=== PATIENT | male | born 1940 | race Caucasian/White ===

== ENCOUNTER 2016-06-27 14:11 | Emergency (ER) | payer MEDICARE ==
[~2016-06-27] VITALS: Ht 180.3 cm; Wt 121.4 kg
[~2016-06-27 14:11] MED LIST: ACET1TAB12 PO; AMLO10TA3 PO; ASPI81TA3 PO; ATOR80TA PO; FAMO20T PO; INS7030U SUBQ; LATA2.5D6 OP; LOSA100T29 PO; MAGN400O4 PO; METO75TA PO; MULT1CAP33 PO; NORT25CA PO; POLY17PO6 PO; TAMS0.4C98 PO
[2016-06-27 14:39] VITALS: BP 173/81; PULSE 51; RESP 18; O2SAT 98
--- NOTE | 2016-06-27 14:59 | ED.REPORT ---
HPI-General Illness Date of Service Jun 27, 2016 ED Provider: Carlos Cruz DO A 76 year old male with a history of CAD, COPD, diabetes, hypertension, stage IV prostate cancer, intracerebral hemorrhage, TIA and Afib presents to the ED complaining of abdominal pain that began 4 days ago. reports that patient has been experiencing SOB, headache, nausea, vomiting and cough. Patient has also had some difficulty walking due to general malaise. Patient denies any chest pain, numbness, weakness, tingling or any other stroke symptoms. Nursing Notes Stated Complaint: SHORTNESS OF BREATH, ABDOMINAL PAIN Chief Complaint: Male Abdominal Pain Nursing Notes Reviewed: Yes Allergies: Coded Allergies: No Known Allergies (Unverified , 01/12/16) Scheduled Amlodipine (Amlodipine) 10 Mg Tablet 10 MG PO DAILY Aspirin Chew (Aspirin Chew) 81 Mg Chew 81 MG PO DAILY Atorvastatin (Lipitor) 80 Mg Tablet 80 MG PO DAILY Famotidine (Pepcid) 20 Mg Tablet 20 MG PO BID Insul NPH Hu Rec/Ins Rg Hu Rec (Novolin 70/30 U100 Insulin Vial) 100 U/1 Ml U 25 U SUBQ BID Latanoprost (Latanoprost) 2.5 Ml Drops 1 GTT OP HS Metoprolol Tartrate (Metoprolol Tartrate) 75 Mg Tablet 75 MG PO BID Nortriptyline (Nortriptyline) 25 Mg Capsule 50 MG PO HS Tamsulosin (Flomax) 0.4 Mg Capsule 0.4 MG PO DAILY Scheduled PRN Acetaminophen/Codeine 300-30mg (Tylenol/Codeine #3) 1 Each Tablet 1 TABLET PO Q4H PRN PRN Pain Losartan Potassium (Losartan Potassium) 100 Mg Tablet 100 MG PO PRN hs Magnesium Hydroxide (Milk of Magnesia) 400 Mg/5 Ml Oral.susp 400 MG PO HS PRN PRN For Constipation Multivitamin (Multivitamins) 1 Each Capsule 1 EACH PO MORNING PRN PRN Supplement Polyethylene Glycol 3350 (Miralax) 17 Gm Powd.pack 17 GM PO HS PRN PRN For Constipation General Time Seen by MD: 14:56 Chief Complaint Abdominal pain Hx Obtained From: Patient, Spouse Arrived By: Walk-in Sudden in Onset?: No Onset Occurred: 4 days ago Symptom Duration: Since onset Location: : Abdomen Quality: Painful Radiation: : Does not radiate Severity: Current: Mild Severity: Maximum: Mild Associated with: Reports: Cough, Headache, Nausea, Shortness of breath, Vomiting, Denies: Dizziness, Numb extremities, Weakness Pertinent Negative: Pt denies other symptoms Recent Healthcare: No recent hospitalization, Recent doctor visit Past Medical History Past Medical History Cerebral artery occlusion w/ cerebral infarction Obstructive sleep apnea h/o intracerebral hemorrhage h/o colon polyps Chronic kidney disease Arthritis h/o pneumonia PVD h/o toxic metabolic encephalopathy h/o acute respiratory failure w/ hypoxia Diabetic mononeuropathy Reports: COPD, Cancer (Prostate Stage 4 ), Coronary artery disease, Diabetes mellitus, GERD, Hypertension, Stroke Reports: Atrial fibrillation, Morbid Obesity Past Surgical History Hernia repair Vascular surgery Polypectomy Reports: Tonsillectomy Smoking History Former Smoker Social History Drug Use: Denies drug use Other Social History: Good social support, , Local resident Ambulatory Status Independent Review of Systems Full Review of Systems Constitutional: Reports: Malaise, Denies: Chills, Fever Respiratory: Reports: Non-productive cough, Shortness of breath Cardiovascular: Denies: Chest pain GI: Reports: Abdominal pain, Nausea, Vomiting Neurologic: Reports: Headache, Problem walking, Denies: Change LOC, Numbness, Weakness Complete sys rev & neg: except as marked. Physical Exam Vital Signs Vital Signs Date Time Temp Pulse Resp B/P Pulse Ox O2 Delivery O2 Flow Rate FiO2 06/27/16 17:29 54 16 166/72 96 Room Air 06/27/16 14:39 35.9 51 18 173/81 98 Room Air Initial VS: Reviewed Neck: Supple, Non-tender, Full range of motion Extremities: Vascular intact, Neuro intact, No swelling, No tenderness Skin: Warm, Dry, No cyanosis Neurologic: Alert, Oriented, Nonfocal Psychiatric: Mood/affect normal, Behavior normal, Normal thought content General/Constitutional: Awake, Alert Head / Eyes: Atraumatic, Normocephalic, PERRL Respiratory / Chest: Atraumatic, Breath sounds NL, Breath sounds = bilat Cardiovascular: Heart rate NL, Regular rhythm, Heart sounds NL Abdomen: Atraumatic, Soft Tenderness/Guarding/Rebound: Positive: Guarding voluntary, Tender RLQ... Neurologic: Oriented X3, Speech NL, No motor deficits, No sensory deficits, CN II - XII intact, Reflexes equal bilat, Cerebellar NL, Memory NL Interpretation & Diagnostics Lab Results Interpretation Result Diagram: 06/27/16 1510 06/27/16 1510 Test 06/27/16 15:10 06/27/16 16:30 White Blood Count 7.1th/mm3 (3.8-10.1) Red Blood Count 4.66mil/mm3 (4.40-5.80) Hemoglobin 14.4g/dL (13.8-17.2) Hematocrit 40.1% (41.0-50.0) Mean Corpuscular Volume 86.1fL (81-100) Mean Corpuscular Hemoglobin 30.9pg (27.0-35.0) Mean Corpuscular Hemoglobin Concent 35.9% (32.0-37.0) Red Cell Distribution Width 12.9% (12.3-15.4) Platelet Count 206bil/L (150-400) Neutrophils (%) (Auto) 69.9% (40-74) Lymphocytes (%) (Auto) 19.7% (14-46) Monocytes (%) (Auto) 8.3% (4-12) Eosinophils (%) (Auto) 1.4% (0-5) Basophils (%) (Auto) 0.6% (0-3) Sodium Level 136mEq/L (134-144) Potassium Level 4.8mEq/L (3.5-5.2) Chloride Level 99mEq/L (97-108) Carbon Dioxide Level 25mmol/L (18-29) Blood Urea Nitrogen 13mg/dL (8-27) Creatinine 0.79mg/dL (0.76-1.27) Estimat Glomerular Filtration Rate 102mL/min (>59) Glucose Level 346mg/dL (60-99) Lactic Acid Level 1.9mmol/L (0.4-2.0) Calcium Level 9.1mg/dL (8.5-10.1) Magnesium Level 2.5mg/dL (1.6-2.6) Total Bilirubin 0.5mg/dL (0.0-1.2) Aspartate Amino Transf (AST/SGOT) 20U/L (0-50) Alanine Aminotransferase (ALT/SGPT) 18U/L (0-44) Alkaline Phosphatase 69U/L (25-160) Troponin T < 0.010ug/L (0.0-0.011) Total Protein 6.8g/dL (6.4-8.4) Albumin 3.6g/dL (3.4-5.0) Lipase 20U/L (13-60) Hold Urine Received (Received) ECG Interpretation ECG Interpretation: Normal Sinus Rhythm Rate 58 Time: 14:55 Interpreted by: ED physician Normal ECG Interpretation: No change from prior ECGs X-Ray Chest Interpretation Chest Xray Interpretation: IMPRESSION: No acute disease Dictated by: Mark Tatum M.D. on 06/27/2016 at 15:54 Interpretation / Wet Read by: Interpret - Radiologist CT Head Interpretation IMPRESSION: No acute intracranial process. Dictated by: Mark Tatum M.D. on 06/27/2016 at 16:43 Study: Head CT no contrast Interpretation / Wet Read by: Interpret - Radiologist CT Abd / Pelvis Interpretation IMPRESSION: No acute abnormality. Normal appendix. Bilateral renal cysts. Cardiomegaly. Calcified bilateral pleural plaques raise the possibility of asbestos related pleural disease. Dictated by: Mark Tatum M.D. on 06/27/2016 at 16:49 Study type: Abdominal CT IV contrast, Abdom CT oral contrast Interpretation / Wet Read by: Interpret - Radiologist Re-Eval/Medical Decision Med Decision/Clinical Course Overall no obvious source of infection or symptoms can be found. Unlikely to be pulmonary was not given normal heart rate, respiratory rate, and oxygen saturation. Discussed with patient diagnostic evaluation and he is agreeable for discharge with strict follow-up and return precautions. Time of Eval: 16:30 Patient Status: Condition improved Re-Evaluation/Progress Note: Patient is rechecked. He believes he may be experieincing an allergic reaction to the oral contrast. Negative for wheezes or stridor. Time of Eval: 17:12 Patient Status: Condition improved Re-Evaluation/Progress Note: Patient is rechecked. He is informed of his lab results, EKG results, CT results, X-ray results and diagnosis. All of the patient's questions are addressed. He understands and agrees with the treatment plan. Counseled Regarding: Diagnosis, Lab results, Need for follow-up, When/why to return to ED Discharge & Departure Primary Impression: Pain, abdominal, nonspecific Disposition: Home Discharge Condition All VS Reviewed: Yes Condition: Stable Patient Instructions: Acute Abdominal Pain (ED) Additional Instructions: Thank you for trusting us with your care this morning. Your emergency department evaluation today included interview, examination, lab work, EKG, brain CT, abdominal CT and chest X-ray. Your results are reassuring that there is no dangerous cause for concern at this time. Schedule a follow up appointment with your primary care provider in the next 2-3 days for a recheck. Please return to the emergency department for any new or worsening symptoms. Referrals: NOPCP (PCP) [facility]fs[facility]h [facility] Scribe Attestation Portions of this note were transcribed by Ivy Zuñiga. I, Dr. Cruz personally performed the history, physical exam and medical decision-making; I reviewed and confirmed the accuracy of the information in the transcribed note. Signed by: Ivy Zuñiga, 06/27/16, 1723. Carlos Cruz DO Jun 27, 2016 14:59 IVY ZUÑIGA Jun 27, 2016 15:00
[2016-06-27] MEDS ORDERED: Ondansetron 2 mg/mL 2 mL Inj IVPUSH PRN (15:10)
[2016-06-27] MEDS ORDERED: 0.9% Sodium Chloride 500 ML IV ONE (15:10)
[2016-06-27 15:27] LABS: BASOPHILS % (AUTO) 0.6 % (0-3); EOSINOPHILS % (AUTO) 1.4 % (0-5); MONOCYTES % (AUTO) 8.3 % (4-12); Mean Corpuscular Hemoglobin 30.9 pg (27.0-35.0); Mean Corpuscular Volume 86.1 fL (81-100); NEUTROPHILS % (AUTO) 69.9 % (40-74); Platelet Count 206 bil/L (150-400)
[2016-06-27 15:56] LABS: Magnesium 2.5 mg/dL (1.6-2.6)
--- NOTE | 2016-06-27 15:56 | DRSVH ---
PROCEDURE: X-RAY CHEST ONE VIEW, PORTABLE ([id number]) INDICATIONS: dyspnea TECHNIQUE: One view of the chest was acquired. COMPARISON: None. FINDINGS: Surgical changes and devices: Sternotomy wires Lungs and pleura: No pleural effusions or pneumothorax. Lungs are clear. Mediastinum: Mediastinal contours appear normal. Heart size is normal. Bones and chest wall: No suspicious bony lesions. Overlying soft tissues appear unremarkable. IMPRESSION: No acute disease Dictated by: Mark Tatmu M.D. on 06/27/2016 at 15:54 Approved by: Mark Tautm M.D. on 06/27/2016 at 15:54
--- NOTE | 2016-06-27 16:45 | DRSVH ---
PROCEDURE: CT BRAIN WITHOUT CONTRAST ([id number]) INDICATIONS: severe CULP, H/o ICH TECHNIQUE: Noncontrast 4.5 mm thick angled axial sections acquired from the foramen magnum to the vertex, with c oronal reformats. COMPARISON: None. FINDINGS: Image quality: Excellent. CSF spaces: Basal cisterns are patent. No extra-axial fluid collections. The ventricles are symmet reginaldo in size and shape. Brain: No intracranial bleeds or masses. There is cerebral volume loss for age, with resultant vent ricular and sulcal prominence. There are periventricular and deep white matter chronic small vessel ischemic changes. There is intracranial internal carotid artery atherosclerosis. Skull and face: Calvarium and visualized facial bones appear intact, without suspicious lesions. Sinuses: Visualized sinuses and mastoids are clear. IMPRESSION: No acute intracranial process. Dictated by: Mark Tatum M.D. on 06/27/2016 at 16:43 Approved by: Mark Tatum M.D. on 06/27/2016 at 16:43
--- NOTE | 2016-06-27 16:51 | DRSVH ---
PROCEDURE: CT ABDOMEN AND PELVIS WITH CONTRAST ([id number]) INDICATIONS: RLQ pain TECHNIQUE: After the administration of intravenous contrast, 5 mm thick sections acquired from the diaphragm to the symphysis. 5 mm coronal and sagittal reformats were acquired. For radiation dose reduction, the following was used: automated exposure control, adjustment of mA and/or kV according to patient siz e. COMPARISON: None. FINDINGS: Image quality: Excellent. ABDOMEN: Lung bases: Left basilar atelectasis. Bilateral lower lobe calcified pleural plaques. Heart is enlarg ed. Solid organs: Liver and spleen are normal in size and enhancement. Gallbladder surgically absent. Biliary system is non dilated. Pancreas enhances normally. No adrenal nodules. Kidneys demonstrate normal size and enhancement, without hydronephrosis. Bilateral renal cysts, measuring up to 8.0 cm. Some of these are too small to characterize definitively and technically indeterminate. Peritoneum and bowel: Bowel loops demonstrate normal wall thickness and caliber. No free fluid or a ir. Normal appendix Nodes and vessels: No retroperitoneal or mesenteric adenopathy by size criteria. Mild ectasia of the infrarenal abdominal aorta measuring 3.3 cm Miscellaneous: No ventral hernias. PELVIS: Genitourinary: Bladder wall thickness is normal. Miscellaneous: Small bilateral fat-containing inguinal hernias. No adenopathy. Bones: No suspicious bony lesions. No vertebral body compression fractures. IMPRESSION: No acute abnormality. Normal appendix. Bilateral renal cysts. Cardiomegaly. Calcified bilateral pleural plaques raise the possibility of asbestos related pleural disease. Dictated by: Mark Tatum M.D. on 06/27/2016 at 16:49 Approved by: Mark Tatum M.D. on 06/27/2016 at 16:49
[2016-06-27 17:29] VITALS: BP 166/72; PULSE 54; RESP 16; O2SAT 96
[2016-08-20] MEDS ORDERED: LAMO25TA2 PO (17:16)
[2016-08-20] MEDS ORDERED: MEMA5TAB PO (17:16)
[2016-08-20] MEDS ORDERED: ONDA4TAB6 PO (17:16)
== END 2016-06-27 17:30 | disposition home or self-care (01) ==
LOC: SED 14:11
DX: R10.9 Unspecified abdominal pain (principal); I25.10 Atherosclerotic heart disease of native coronary artery without angina pectoris; J44.9 Chronic obstructive pulmonary disease, unspecified; E11.9 Type 2 diabetes mellitus without complications; I10 Essential (primary) hypertension; I48.91 Unspecified atrial fibrillation; K21.9 Gastro-esophageal reflux disease without esophagitis; Z87.891 Personal history of nicotine dependence; Z86.73 Personal history of transient ischemic attack (TIA), and cerebral infarction without residual deficits; Z85.46 Personal history of malignant neoplasm of prostate; Z87.01 Personal history of pneumonia (recurrent); Z79.82 Long term (current) use of aspirin; Z79.4 Long term (current) use of insulin
CPT/HCPCS: 36415; 70450; 71010; 74177; 80053; 83605; 83690; 83735; 84484; 85025; 93005; 96374; 96375; 99285; J2270; J2405; J7040; Q9967

== ENCOUNTER 2016-06-30 02:55 | Emergency (ER) | payer MEDICARE ==
[~2016-06-30] VITALS: Ht 182.9 cm; Wt 121.3 kg
[2016-06-30 03:04] VITALS: BP 163/55; PULSE 45; RESP 18; O2SAT 100
--- NOTE | 2016-06-30 03:05 | ED.REPORT ---
HPI-Stroke / CVA Jun 30, 2016 ED Provider: Ulices Eastman MD Pt is 76 y/o male with history of stroke with underlying dementia who reports to the ED via EMS for stroke like symptoms. Per the , Pt awakened at 2200 last night with right sided weakness which was resolved upon his arrival in the ER. Pt is a poor historian and unable to remember much of anything. Nursing Notes Stated Complaint: CODE STROKE Chief Complaint: Stroke Symptoms Nursing Notes Reviewed: Yes Allergies: Coded Allergies: No Known Allergies (Unverified , 01/12/16) Scheduled Amlodipine (Amlodipine) 10 Mg Tablet 10 MG PO DAILY (Reported) Aspirin Chew (Aspirin Chew) 81 Mg Chew 81 MG PO DAILY (Reported) Atorvastatin (Lipitor) 80 Mg Tablet 80 MG PO DAILY (Reported) Famotidine (Pepcid) 20 Mg Tablet 20 MG PO BID (Reported) Insul NPH Hu Rec/Ins Rg Hu Rec (Novolin 70/30 U100 Insulin Vial) 100 U/1 Ml U 25 U SUBQ BID Latanoprost (Latanoprost) 2.5 Ml Drops 1 GTT OP HS Metoprolol Tartrate (Metoprolol Tartrate) 75 Mg Tablet 75 MG PO BID (Reported) Nortriptyline (Nortriptyline) 25 Mg Capsule 50 MG PO HS (Reported) Tamsulosin (Flomax) 0.4 Mg Capsule 0.4 MG PO DAILY (Reported) Scheduled PRN Acetaminophen/Codeine 300-30mg (Tylenol/Codeine #3) 1 Each Tablet 1 TABLET PO Q4H PRN PRN Pain (Reported) Losartan Potassium (Losartan Potassium) 100 Mg Tablet 100 MG PO PRN hs (Reported ) Magnesium Hydroxide (Milk of Magnesia) 400 Mg/5 Ml Oral.susp 400 MG PO HS PRN PRN For Constipation (Reported) Multivitamin (Multivitamins) 1 Each Capsule 1 EACH PO MORNING PRN PRN Supplement (Reported) Polyethylene Glycol 3350 (Miralax) 17 Gm Powd.pack 17 GM PO HS PRN PRN For Constipation (Reported) General Time Seen by Provider: 03:22 Chief Complaint Weakness Right-sided Hx Obtained From: Spouse, EMS Arrived By: Ambulance Time last known well 2200 last night. Sudden in Onset?: Yes Symptom Duration: 5 - 8 hours Progression Since Onset: Resolved Similar Sx Previous: Yes Risk Factors NIH Stroke Scale Level of Consciousness: Alert and responsive (0) Ask Month & Age: 0 questions right (2) Open/Close Eyes/Hand [employer] Site Monitor: Performs both tasks (0) Horizontal EO Movements: None (0) Visual Orr: No visual loss (0) Facial Palsy: Normal symmetry (0) Right Arm Motor Drift (10s): No drift 10 sec (0) Left Arm Motor Drift (10s): No drift 10 sec (0) Right Leg Motor Drift (5s): No drift 5 sec (0) Left Leg Motor Drift (5s): No drift 5 sec (0) Limb Ataxia FNF/Heel-Damon: No ataxia (0) Sensation (Arms/Legs/Face): No sensory loss (0) Language Aphasia: No aphasia, normal (0) Dysarthria: No dysarthria, normal (0) Extinction/Inattention: No exctinct/inattent (0) NIHSS Score: 2 Time NIHSS Performed: 03:10 Date NIHSS Performed: Jun 30, 2016 )( CVA Risk Stratification Age >60 Diabetes mellitus Hypertension Other (coronary artery disease) Prior CVA/TIA Risk factors reviewed Past Medical History Past Medical History Cerebral artery occlusion w/ cerebral infarction Obstructive sleep apnea h/o intracerebral hemorrhage h/o colon polyps Chronic kidney disease Arthritis h/o pneumonia PVD h/o toxic metabolic encephalopathy h/o acute respiratory failure w/ hypoxia Diabetic mononeuropathy Reports: COPD, Cancer, Coronary artery disease, Diabetes mellitus, GERD, Hypertension, Stroke Reports: Atrial fibrillation, Morbid Obesity Past Surgical History Hernia repair Vascular surgery Polypectomy Reports: Tonsillectomy Smoking History Former Smoker Social History Drug Use: Denies drug use Other Social History: Good social support, , Local resident Ambulatory Status Independent Review of Systems ROS limited due to patient's underlying dementia. Neurologic: Reports: Confusion, Focal weakness (Right side) Complete sys rev & neg: except as marked. Physical Exam Initial Vital Signs Vital Signs (First) Date Time Temp Pulse Resp B/P Pulse Ox O2 Delivery O2 Flow Rate FiO2 06/30/16 03:04 36.6 45 18 163/55 100 Room Air Initial VS: Reviewed, Vital signs abnormal Abdomen / GI: Soft, Non-tender, No guarding, No rebound, No distention Extremities: Vascular intact, Neuro intact, No swelling, No tenderness Skin: Warm, Dry, No cyanosis General/Constitutional: Awake, Not toxic appearing Alertness: Positive: Confused, Disoriented Behavior: Positive: Anxious Head / Eyes: Atraumatic, Normocephalic Neck: Supple, Full range of motion, No swelling, Non-tender, No carotid bruit Respiratory / Chest: Breath sounds NL, Breath sounds = bilat, No respiratory distress, No rales, No rhonchi, No wheezing Cardiovascular: Heart rate NL, Regular rhythm, Heart sounds NL, No murmurs, Peripheral circulation NL Neurologic: Speech NL Mental Status: Positive: Confused, Disoriented to time See NIH Stroke Scale in risk section of this note. Interpretation & Diagnostics Lab Results Interpretation Result Diagram: 06/30/16 0300 06/30/16 0300 Test 06/30/16 03:00 06/30/16 04:00 White Blood Count 6.3th/mm3 (3.8-10.1) Red Blood Count 4.48mil/mm3 (4.40-5.80) Hemoglobin 13.8g/dL (13.8-17.2) Hematocrit 38.7% (41.0-50.0) Mean Corpuscular Volume 86.4fL (81-100) Mean Corpuscular Hemoglobin 30.8pg (27.0-35.0) Mean Corpuscular Hemoglobin Concent 35.7% (32.0-37.0) Red Cell Distribution Width 12.8% (12.3-15.4) Platelet Count 220bil/L (150-400) Neutrophils (%) (Auto) 59.1% (40-74) Lymphocytes (%) (Auto) 29.4% (14-46) Monocytes (%) (Auto) 9.3% (4-12) Eosinophils (%) (Auto) 1.6% (0-5) Basophils (%) (Auto) 0.3% (0-3) Prothrombin Time 10.0sec (8.1-12.5) Prothromb Time International Ratio 0.94ratio Activated Partial Thromboplast Time 21.0sec (22.8-33.0) Sodium Level 136mEq/L (134-144) Potassium Level 3.9mEq/L (3.5-5.2) Chloride Level 96mEq/L (97-108) Carbon Dioxide Level 26mmol/L (18-29) Blood Urea Nitrogen 11mg/dL (8-27) Creatinine 0.85mg/dL (0.76-1.27) Estimat Glomerular Filtration Rate 93mL/min (>59) Glucose Level 272mg/dL (60-99) Calcium Level 9.2mg/dL (8.5-10.1) Total Bilirubin 0.5mg/dL (0.0-1.2) Aspartate Amino Transf (AST/SGOT) 17U/L (0-50) Alanine Aminotransferase (ALT/SGPT) 18U/L (0-44) Alkaline Phosphatase 65U/L (25-160) Troponin T 0.010ug/L (0.0-0.011) Total Protein 6.5g/dL (6.4-8.4) Albumin 3.4g/dL (3.4-5.0) Urine Color Yellow (YELLOW) Urine Appearance Clear (CLEAR,HAZY) Urine pH 8.5 (5.0-8.0) Urine Specific [place] 1.015 (1.003-1.035) Urine Protein 100mg/dL (NEG,TRACE) Urine Glucose (UA) 250mg/dL (NEGATIVE) Urine Ketones Negativemg/dL (NEGATIVE) Urine Occult Blood Trace (NEGATIVE) Urine Nitrite Negative (NEGATIVE) Urine Bilirubin Negative (NEGATIVE) Urine Urobilinogen Normalmg/dL (NORMAL) Urine Leukocyte Esterase Negative (NEGATIVE) Urine RBC 0-2/hpf (0-2) Urine WBC 0-5/hpf (0-5) Urine Epithelial Cells Few/hpf (NONE-MOD) Urine Crystals None seen (NONE SEEN) Urine Bacteria Few/hpf (NONE-FEW) Urine Hyaline Casts None/lpf (NONE) Urine Granular Casts None seen (NONE SEEN) Urine Waxy Casts None seen (NONE SEEN) Urine Red Blood Cell Casts None seen (NONE SEEN) Urine White Blood Cell Casts None seen (NONE SEEN) Urine Mucus None seen (None Seen) Urine Trichomonas None seen (NONE SEEN) Urine Yeast None (NONE SEEN) Urinalysis Comment None Urine Culture Reflexed Not indicated Lab values outside NL range: no clinical significance. ECG Interpretation ECG Interpretation: Sinus bradycardia, rate 49. Time: 03:15 Interpreted by: ED physician ECG Interpretation: Slow sinus arrhythmia, Rate 49 Nonspecific intraventricular conduction delay Nonspecific T abnormalities, anterior leads Time: 04:49 Interpreted by: ED physician CT Head Interpretation Chronic infarct versus contusion involving the lateral aspect of the right temporal lobe. Moderate involutional changes. Moderate patchy low density bilaterally in the deep white matter likely due to chronic ischemic small vessle disease. No acute intracranial abnormality. Prominence of the ventricular system may be secondary to atrophy versus normal pressure hydrocephalus. Study: Head CT no contrast Interpretation / Wet Read by: Interpret - Radiologist Re-Eval/Medical Decision Med Decision/Clinical Course 76-year-old male who has been on metoprolol 75 twice a day. He was found to be bradycardic so his dose was decreased to 50 mg twice a day. He has persistent bradycardia and had an episode of weakness and confusion. Family was concerned this may be another stroke. CT scan is negative. He is not a TPA candidate because is outside the window and his symptoms have resolved. He has had recent TIA workup. He will skip a dose of metoprolol then decrease his dose to 25 twice a day with close monitoring of hypotension or bradycardia. He will follow-up with his primary doctor in the next 2-3 days. Source of Hx: Old records Counseled Regarding: Diagnosis, Lab results, Need for follow-up, When/why to return to ED Patient Discharge & Departure Impression: Primary Impression: Transient confusion Additional Impression: Bradycardia, drug induced Disposition: Home Discharge Condition All VS Reviewed: Yes Condition: Stable Additional Instructions: John's heart rate is still too low. No metoprolol this morning, then decrease his metoprolol to 25 mg twice daily. It does not appear that he has had a new stroke. I think his confusion was related to the low heart rate. Keep your appointment this morning with your primary doctor to discuss further medication changes. Referrals: NOPCP (PCP) Scribe Attestation Portions of this note were transcribed by Luigi Cao and Claudy Hoff. I, Dr. Eastman personally performed the history, physical exam and medical decision-making; I reviewed and confirmed the accuracy of the information in the transcribed note. Signed by: Darnell Colunga, 06/30/16 and 06:41 Ulices Eastman MD Jun 30, 2016 03:05 Luigi Cao Jun 30, 2016 03:33 CLAUDY HOFF Jun 30, 2016 04:25
[2016-06-30 03:09] LABS: BASOPHILS % (AUTO) 0.3 % (0-3); EOSINOPHILS % (AUTO) 1.6 % (0-5); MONOCYTES % (AUTO) 9.3 % (4-12); Mean Corpuscular Hemoglobin 30.8 pg (27.0-35.0); Mean Corpuscular Volume 86.4 fL (81-100); NEUTROPHILS % (AUTO) 59.1 % (40-74); Platelet Count 220 bil/L (150-400)
[2016-06-30 03:16] VITALS: BP 163/55; PULSE 45; RESP 12; O2SAT 100
[2016-06-30 03:26] LABS: INR 0.94 ratio
[2016-06-30 03:31] LABS: TROPONIN T 0.01 ug/L (0.0-0.011)
[2016-06-30 03:38] VITALS: BP 167/57; PULSE 48; RESP 22; O2SAT 99
[2016-06-30 04:33] VITALS: BP 176/55; PULSE 43; RESP 13; O2SAT 96
[2016-06-30 05:52] LABS: APPEARANCE,URINE CLEAR (CLEAR,HAZY); COLOR,URINE YELLOW (YELLOW); OCCULT BLOOD,URINE TRACE (NEGATIVE); PH,URINE 8.5 (5.0-8.0); UROBILINOGEN,URINE NORMAL (NORMAL)
[2016-06-30 06:29] VITALS: BP 155/64; PULSE 47; RESP 12; O2SAT 96
[2016-06-30 07:24] VITALS: BP 155/64; PULSE 47; RESP 12; O2SAT 96
--- NOTE | 2016-06-30 12:11 | DRSVH ---
PROCEDURE: CT BRAIN (TPA) ([id number]) INDICATIONS: Stroke TECHNIQUE: Noncontrast 4.5 mm thick angled axial sections acquired from the foramen magnum to the vertex, with c oronal reformats. COMPARISON: [facility], CT, CT BRAIN WO CON, 06/27/2016, 16:22. [facility], CT, BRAIN (TPA), 01/12/2016, 12:16. FINDINGS: Image quality: Excellent. CSF spaces: Basal cisterns are patent. No extra-axial fluid collections. The ventricles are symmet reginaldo in size and shape. There is a mild ventricular prominence, out of proportion to gyral and sulcal atrophy. Brain: No intracranial bleeds or masses. There is cerebral volume loss for age, with resultant vent ricular and sulcal prominence. There are periventricular and deep white matter chronic small vessel ischemic changes. There is intracranial internal carotid artery atherosclerosis. There is a focus o f right temporal low attenuation, new compared to prior exam. Skull and face: Calvarium and visualized facial bones appear intact, without suspicious lesions. Sinuses: Visualized sinuses and mastoids are clear. IMPRESSION: 1. No acute intracranial process. 2. Moderate atrophy and chronic microvascular ischemic changes. This study fulfills neurological imaging criteria for inclusion or exclusion of acute stroke therapie s based on available published neurological guidelines. Dictated by: Poppy Gómez M.D. on 06/30/2016 at 12:09 Approved by: Poppy Gómez M.D. on 06/30/2016 at 12:09
[2016-08-20] MEDS ORDERED: MEMA5TAB PO (17:16)
[2016-08-20] MEDS ORDERED: LAMO25TA2 PO (17:16)
[2016-08-20] MEDS ORDERED: ONDA4TAB6 PO (17:16)
== END 2016-06-30 07:24 | disposition home or self-care (01) ==
LOC: SED 02:55
DX: R41.0 Disorientation, unspecified (principal); R00.1 Bradycardia, unspecified; T44.7X5A Adverse effect of beta-adrenoreceptor antagonists, initial encounter; Y93.89 Activity, other specified; Y92.89 Other specified places as the place of occurrence of the external cause; Y99.8 Other external cause status; I25.10 Atherosclerotic heart disease of native coronary artery without angina pectoris; I48.91 Unspecified atrial fibrillation; J44.9 Chronic obstructive pulmonary disease, unspecified; I12.9 Hypertensive chronic kidney disease with stage 1 through stage 4 chronic kidney disease, or unspecified chronic kidney disease; E11.22 Type 2 diabetes mellitus with diabetic chronic kidney disease; N18.9 Chronic kidney disease, unspecified; E11.41 Type 2 diabetes mellitus with diabetic mononeuropathy; K21.9 Gastro-esophageal reflux disease without esophagitis; F03.90 Unspecified dementia, unspecified severity, without behavioral disturbance, psychotic disturbance, mood disturbance, and anxiety; Z86.73 Personal history of transient ischemic attack (TIA), and cerebral infarction without residual deficits; Z79.82 Long term (current) use of aspirin; Z79.4 Long term (current) use of insulin; Z87.891 Personal history of nicotine dependence
CPT/HCPCS: 36415; 70450; 80053; 81000; 82948; 84484; 85025; 85610; 85730; 93005; 99285; G0463

== ENCOUNTER 2016-08-13 10:45 | Emergency (ER) | payer MEDICARE ==
[~2016-08-13] VITALS: Ht 180.3 cm; Wt 100.0 kg
[2016-08-13 10:49] VITALS: PULSE 40; RESP 14; O2SAT 100
--- NOTE | 2016-08-13 10:57 | ED.REPORT ---
HPI-General Illness Date of Service Aug 13, 2016 ED Provider: Kyleigh Wilks MD Patient is a 76 year old male with a history of CAD, COPD, DM, HTN, stage IV prostate cancer, intracerebral hemorrhage, TIA and A-fib presents to the ED due to severe headache and bradycardia onset this morning. Patient's reports that he began complaining of a headache at 1600 yesterday which has increased in severity since, now rated at 10/10. Pt was in the ED last week due to a GLF where he hit his head. CT scans did not show any acute findings at the time. He associates SOB, abdominal pain, and confirms that his symptoms are worse then yesterday. He denies fever, cough, chills and chest pain. Pt has chronic low heart rate and high blood pressure and was last seen in the ED a month ago for low blood pressure. Pt has cataracts and is almost completely blind. His suggests that his headaches are associated with straining his eyes. He was seen [address] Nickerson's office. Nursing Notes Stated Complaint: MASSIVE HEADACHE Chief Complaint: Headache Nursing Notes Reviewed: Yes Allergies: Coded Allergies: No Known Allergies (Unverified , 08/13/16) Scheduled Amlodipine (Amlodipine) 10 Mg Tablet 10 MG PO DAILY Aspirin Chew (Aspirin Chew) 81 Mg Chew 81 MG PO DAILY Atorvastatin (Lipitor) 80 Mg Tablet 80 MG PO DAILY Famotidine (Pepcid) 20 Mg Tablet 20 MG PO BID Insul NPH Hu Rec/Ins Rg Hu Rec (Novolin 70/30 U100 Insulin Vial) 100 U/1 Ml U 25 U SUBQ BID Latanoprost (Latanoprost) 2.5 Ml Drops 1 GTT OP HS Metoprolol Tartrate (Metoprolol Tartrate) 75 Mg Tablet 75 MG PO BID Nortriptyline (Nortriptyline) 25 Mg Capsule 50 MG PO HS Tamsulosin (Flomax) 0.4 Mg Capsule 0.4 MG PO DAILY Scheduled PRN Acetaminophen/Codeine 300-30mg (Tylenol/Codeine #3) 1 Each Tablet 1 TABLET PO Q4H PRN PRN Pain Losartan Potassium (Losartan Potassium) 100 Mg Tablet 100 MG PO PRN hs Magnesium Hydroxide (Milk of Magnesia) 400 Mg/5 Ml Oral.susp 400 MG PO HS PRN PRN For Constipation Multivitamin (Multivitamins) 1 Each Capsule 1 EACH PO MORNING PRN PRN Supplement Polyethylene Glycol 3350 (Miralax) 17 Gm Powd.pack 17 GM PO HS PRN PRN For Constipation General Time Seen by MD: 10:56 Chief Complaint Other (bradycardia) Hx Obtained From: Patient, Spouse Arrived By: Ambulance Sudden in Onset?: Yes Onset Occurred: Just prior to arrival Symptom Duration: Since onset Severity: Current: No pain currently Recent Healthcare: Recent doctor visit Similar Sx Previous: No Past Medical History Past Medical History Cerebral artery occlusion w/ cerebral infarction Obstructive sleep apnea h/o intracerebral hemorrhage h/o colon polyps Chronic kidney disease Arthritis h/o pneumonia PVD h/o toxic metabolic encephalopathy h/o acute respiratory failure w/ hypoxia Diabetic mononeuropathy Stage 4 metastatic prostate cancer Reports: COPD, Cancer, Coronary artery disease, Diabetes mellitus, GERD, Hypertension, Stroke Reports: Atrial fibrillation, Morbid Obesity Past Surgical History Hernia repair Vascular surgery Polypectomy Reports: Tonsillectomy Smoking History Former Smoker Social History Drug Use: Denies drug use Other Social History: Good social support, , Local resident Ambulatory Status Independent Review of Systems bradycardia Full Review of Systems Constitutional: Denies: Chills, Fever Respiratory: Reports: Shortness of breath, Denies: Non-productive cough Cardiovascular: Denies: Chest pain GI: Reports: Abdominal pain Neurologic: Reports: Headache Complete sys rev & neg: except as marked. Physical Exam Vital Signs Vital Signs Date Time Temp Pulse Resp B/P Pulse Ox O2 Delivery O2 Flow Rate FiO2 08/13/16 11:50 36.3 39 15 172/70 100 Room Air 2 Nasal Cannula 08/13/16 11:06 37 10 172/64 100 Room Air 08/13/16 10:49 36.3 40 14 100 Room Air Initial VS: Reviewed ENT: Mucous membranes moist, Conjunctiva normal, No scleral icterus Back: No CVA tenderness Extremities: Vascular intact, Neuro intact, No swelling, No tenderness Skin: Warm, Dry, No cyanosis Psychiatric: Mood/affect normal, Behavior normal, Normal thought content General/Constitutional: Awake Distress / Hydration: Positive: Distress moderate Appearance / Presentation: Positive: Obese globablly weak able to stand and transfer to bed Head / Eyes: Atraumatic, Normocephalic severe headache, worse then baseline Respiratory / Chest: Atraumatic, Breath sounds NL, Breath sounds = bilat, No respiratory distress, No rales, No rhonchi, No wheezing, No retractions Cardiovascular: No gallop, No murmurs, No rubs Heart Rate / Rhythm: Positive: Bradycardia Lower Ext Edema: Positive: Bilateral 3+ Abdomen: No guarding, No rebound Tenderness/Guarding/Rebound: Positive: Tender diffuse (nonspecific lower abdominal pain) LLQ pain Interpretation & Diagnostics Lab Results Interpretation Result Diagram: 08/13/16 1100 08/13/16 1100 Test 08/13/16 11:00 08/13/16 11:41 White Blood Count 7.7th/mm3 (3.8-10.1) Red Blood Count 4.41mil/mm3 (4.40-5.80) Hemoglobin 13.8g/dL (13.8-17.2) Hematocrit 38.8% (41.0-50.0) Mean Corpuscular Volume 88.0fL (81-100) Mean Corpuscular Hemoglobin 31.3pg (27.0-35.0) Mean Corpuscular Hemoglobin Concent 35.6% (32.0-37.0) Red Cell Distribution Width 13.1% (12.3-15.4) Platelet Count 202bil/L (150-400) Neutrophils (%) (Auto) 69.5% (40-74) Lymphocytes (%) (Auto) 20.4% (14-46) Monocytes (%) (Auto) 6.1% (4-12) Eosinophils (%) (Auto) 1.9% (0-5) Basophils (%) (Auto) 1.8% (0-3) Sodium Level 136mEq/L (134-144) Potassium Level 4.5mEq/L (3.5-5.2) Chloride Level 100mEq/L (97-108) Carbon Dioxide Level 24mmol/L (18-29) Blood Urea Nitrogen 12mg/dL (8-27) Creatinine 0.74mg/dL (0.76-1.27) Estimat Glomerular Filtration Rate 110mL/min (>59) Glucose Level 298mg/dL (60-99) Calcium Level 9.1mg/dL (8.5-10.1) Total Bilirubin 0.6mg/dL (0.0-1.2) Aspartate Amino Transf (AST/SGOT) 16U/L (0-50) Alanine Aminotransferase (ALT/SGPT) 15U/L (0-44) Alkaline Phosphatase 63U/L (25-160) Troponin T < 0.010ug/L (0.0-0.011) Pro-B-Type Natriuretic Peptide 321.8pg/mL (0-486) Total Protein 6.4g/dL (6.4-8.4) Albumin 3.6g/dL (3.4-5.0) Procalcitonin 0.06ng/mL (0.00-0.08) Hold Green Top Tube Received (Received) Urine Color Yellow (YELLOW) Urine Appearance Hazy (CLEAR,HAZY) Urine pH 7.0 (5.0-8.0) Urine Specific [place] 1.025 (1.003-1.035) Urine Protein 100mg/dL (NEG,TRACE) Urine Glucose (UA) 500mg/dL (NEGATIVE) Urine Ketones Negativemg/dL (NEGATIVE) Urine Occult Blood Trace (NEGATIVE) Urine Nitrite Negative (NEGATIVE) Urine Bilirubin Negative (NEGATIVE) Urine Urobilinogen Normalmg/dL (NORMAL) Urine Leukocyte Esterase Negative (NEGATIVE) Urine RBC 11-50/hpf (0-2) Urine WBC 0-5/hpf (0-5) Urine Epithelial Cells Occasional/hpf (NONE-MOD) Urine Crystals None seen (NONE SEEN) Urine Bacteria Moderate/hpf (NONE-FEW) Urine Hyaline Casts None/lpf (NONE) Urine Granular Casts Occasional (NONE SEEN) Urine Waxy Casts None seen (NONE SEEN) Urine Red Blood Cell Casts None seen (NONE SEEN) Urine White Blood Cell Casts None seen (NONE SEEN) Urine Mucus None seen (None Seen) Urine Trichomonas None seen (NONE SEEN) Urine Yeast None (NONE SEEN) Urinalysis Comment None Urine Culture Reflexed Indicated ECG Interpretation Time: 11:02 Interpreted by: ED physician Rhythm / Conduction: Bradycardia (41 w/ PVC ) X-Ray Chest Interpretation Chest Xray Interpretation: IMPRESSION: Mild cardiomegaly. Dictated by: Poppy Gómez M.D. on 08/13/2016 at 11:17 Approved by: Poppy Gómez M.D. on 08/13/2016 at 11:18 View: Portable Interpretation / Wet Read by: Interpret - Radiologist CT Head Interpretation IMPRESSION: 1. No acute intracranial findings. 2. Extensive findings likely associated with chronic microvascular ischemic changes. Dictated by: Brisa Baugh M.D. on 08/13/2016 at 12:16 Approved by: Brisa Baugh M.D. on 08/13/2016 at 12:19 Study: Head CT no contrast Interpretation / Wet Read by: Interpret - Radiologist Re-Eval/Medical Decision Time of Eval: 11:15 Patient Status: Condition unchanged Re-Evaluation/Progress Note: Holter monitor is not avilable. Time of Eval: 14:02 Patient Status: Condition improved Re-Evaluation/Progress Note: Pt heart rate is much improved. electron gun inspector is in the 50's with episodes of bradycardia. Discussed plan of treatment with patient and spouse. Imaging and blood work do not show any signs of bleed, heart attack or evidence of heart failure. Plan to discuss case with Dr. Jernigan. Consultation #1: Referral / Consult Name: Jeffrey Martinez MD Consulted With: Cardiology Call Returned at: 14:15 Residential Care Facility Manager: Agrees with michael, Agrees with plan Note: Dr. Martinez agrees that a pacemaker may be appropriate. Consultation #2: Call Returned at: 15:07 Residential Care Facility Manager: Agrees with michael, Agrees with plan Note: Dr. Anthony agrees to stop Metropolol completely. He will see pt in clinic tomorrow and likely schedule him for a pacemaker replacement on Wednesday. Counseled Regarding: Diagnosis, Lab results, Need for follow-up, When/why to return to ED Discharge & Departure Primary Impression: Headache Headache type: unspecified Headache chronicity pattern: unspecified pattern Intractability: not intractable Qualified Code: R51 - Headache Additional Impressions: Bradycardia Tachy-kari syndrome Ruled Out: Stroke, Acute coronary syndrome, Third degree heart block Disposition: Home Discharge Condition All VS Reviewed: Yes Condition: Stable Additional Instructions: After reviewing your lab work and imaging, there are no signs of a head bleed, heart attack or evidence of heart failure. Your symptoms are most likely due to low heart rate. I have talked with the chemical lab supervisor Dr. Atwood and discussed your case. He agrees that you should stop Metoprolol completely. I would also like you to hold the amlodipine tomorrow and discuss taking it with Dr Atwood. You have an apt at 430 in the Clinic tomorrow. Please arrive by 4:15 (same clinic as Dr Duran) He may schedule you for pacemaker placement on Wednesday. Please return to the Emergency Department if you experience any new or worsening symptoms. I hope you get these heart issues sorted out soon and get your cataracts taken care of too. I wish you the best Referrals: NOPCP (PCP) Scribe Attestation Portion of this note were transcribed by Anival Jason. I, Dr. Wilks, personally performed the history, physical exam, and medical decision-making: I reviewed and confirmed the accuracy for the information in the transcribed note. Signed by: feroz Meza, 08/13/16 1400 copies to: Caroline Duran MD; Barrie Atwood MD, Shawna L MD Aug 13, 2016 10:57 ANIVAL JASON Aug 13, 2016 11:27
[2016-08-13 11:06] VITALS: BP 172/64; PULSE 37; RESP 10; O2SAT 100
--- NOTE | 2016-08-13 11:19 | DRSVH ---
PROCEDURE: X-RAY CHEST ONE VIEW, PORTABLE ([id number]) INDICATIONS: HEADACHE, RECENT FALL TECHNIQUE: One view of the chest was acquired. COMPARISON: [facility], CR, XR CHEST 1VW (PORTABLE), 06/27/2016, 15:08. FINDINGS: Surgical changes and devices: Sternal wires. Lungs and pleura: No pleural effusions or pneumothorax. Lungs are clear. Mediastinum: Mediastinal contours appear normal. Heart size is enlarged. Bones and chest wall: No suspicious bony lesions. Overlying soft tissues appear unremarkable. IMPRESSION: Mild cardiomegaly. Dictated by: Poppy Gómez M.D. on 08/13/2016 at 11:17 Approved by: Poppy Gómez M.D. on 08/13/2016 at 11:18
[2016-08-13 11:24] LABS: BASOPHILS % (AUTO) 1.8 % (0-3); EOSINOPHILS % (AUTO) 1.9 % (0-5); MONOCYTES % (AUTO) 6.1 % (4-12); Mean Corpuscular Hemoglobin 31.3 pg (27.0-35.0); NEUTROPHILS % (AUTO) 69.5 % (40-74); Platelet Count 202 bil/L (150-400)
[2016-08-13 11:50] VITALS: BP 172/70; PULSE 39; RESP 15; O2SAT 100
[2016-08-13 11:54] LABS: APPEARANCE,URINE HAZY (CLEAR,HAZY); COLOR,URINE YELLOW (YELLOW); OCCULT BLOOD,URINE TRACE (NEGATIVE); UROBILINOGEN,URINE NORMAL (NORMAL)
[2016-08-13 11:56] LABS: TROPONIN T < 0.010 ug/L (0.0-0.011)
--- NOTE | 2016-08-13 12:21 | DRSVH ---
PROCEDURE: CT BRAIN WITHOUT CONTRAST ([id number]) INDICATIONS: 03/30 headache TECHNIQUE: Noncontrast 4.5 mm thick angled axial sections acquired from the foramen magnum to the vertex, with c oronal reformats. COMPARISON: [facility], CT, CT BRAIN WO CON, 06/27/2016, 16:22. FINDINGS: Image quality: Excellent. CSF spaces: Basal cisterns are patent. No extra-axial fluid collections. The ventricles are symmet reginaldo in size and shape. Brain: No intracranial bleeds or masses. There is marked cerebral volume loss for age, with resulta nt ventricular and sulcal prominence. There are extensive periventricular and deep white matter body make up artist tanya small vessel ischemic changes. There is intracranial internal carotid artery atherosclerosis. Skull and face: Calvarium and visualized facial bones appear intact, without suspicious lesions. Sinuses: Visualized sinuses and mastoids are clear. IMPRESSION: 1. No acute intracranial findings. 2. Extensive findings likely associated with chronic microvascular ischemic changes. Dictated by: Brisa Baugh M.D. on 08/13/2016 at 12:16 Approved by: Brisa Baugh M.D. on 08/13/2016 at 12:19
[2016-08-13 15:37] VITALS: BP 126/64; PULSE 54; RESP 17; O2SAT 100
[2016-08-20] MEDS ORDERED: LAMO25TA2 PO (17:16)
[2016-08-20] MEDS ORDERED: MEMA5TAB PO (17:16)
[2016-08-20] MEDS ORDERED: ONDA4TAB6 PO (17:16)
== END 2016-08-13 15:38 | disposition home or self-care (01) ==
LOC: SED 10:45
DX: R51 Headache (principal); R00.1 Bradycardia, unspecified; I49.5 Sick sinus syndrome; I25.10 Atherosclerotic heart disease of native coronary artery without angina pectoris; J44.9 Chronic obstructive pulmonary disease, unspecified; E11.9 Type 2 diabetes mellitus without complications; I10 Essential (primary) hypertension; C61 Malignant neoplasm of prostate; K21.9 Gastro-esophageal reflux disease without esophagitis; Z87.891 Personal history of nicotine dependence; Z79.4 Long term (current) use of insulin

== ENCOUNTER 2016-08-21 01:20 | Day surgery (SDC) | payer MEDICARE ==
[~2016-08-21] VITALS: Ht 180.3 cm; Wt 117.0 kg
[2016-08-21] VITALS (13 sets, daily range): BP systolic 152–190; BP diastolic 57–95; PULSE 49–83; RESP 16–18; O2SAT 96–97
[~2016-08-21 01:20] MED LIST changes: +LAMO25TA2 PO; +MEMA5TAB PO; -METO75TA PO; -NORT25CA PO; +ONDA4TAB6 PO; -TAMS0.4C98 PO
[2016-08-21 10:29] LABS: BASOPHILS % (AUTO) 0.6 % (0-3); EOSINOPHILS % (AUTO) 1.5 % (0-5); MONOCYTES % (AUTO) 7.1 % (4-12); NEUTROPHILS % (AUTO) 73.1 % (40-74); Platelet Count 187 bil/L (150-400)
[2016-08-21 10:41] LABS: INR 0.96 ratio
[2016-08-21] MEDS ORDERED: INS7030U SUBQ (10:51)
[2016-08-21] MEDS ORDERED: MELA1TAB11 PO (10:51)
[2016-08-21] MEDS ORDERED: TAMS0.4C98 PO (10:51)
[2016-08-21] MEDS ORDERED: 0.9% Sodium Chloride 1,000 ML ONE ×2 (10:59→11:17)
[2016-08-21] MEDS ORDERED: Vancomycin 1,000mg/200 mL NS IV ONE (10:59)
[2016-08-21] MEDS ORDERED: Bupivacaine-MPF 0.5% 30 mL Inj ONE (11:17)
[2016-08-21] MEDS ORDERED: Heparin 1,000 Unit/mL 10 mL Inj ONE (11:17)
[2016-08-21] MEDS ORDERED: Vancomycin 1,000 mg Inj ONE (11:17)
[2016-08-21] MEDS ORDERED: 0.9% Sodium Chloride 250 ML ONE (11:17)
[2016-08-21] MEDS ORDERED: fentaNYL-PF 50 mCg/mL 2 mL Inj ONE (12:19)
[2016-08-21] MEDS: 0.9% Sodium Chloride 1,000 ML IV SCH ×2 (13:55→16:55)
[2016-08-21] MEDS ORDERED: HYDROcodone-APAP 5-325 mg Tablet PO PRN (13:55)
[2016-08-21] MEDS ORDERED: Ondansetron 2 mg/mL 2 mL Inj IVPUSH PRN (13:55)
[2016-08-21] MEDS ORDERED: Codeine-APAP 30-300 mg Tablet PO ONE (16:01)
--- NOTE | 2016-08-21 16:23 | NUR ---
transfer pt transferred to [facility] post dual chamber pacemaker placement. pt denies pain, dressing clean dry and intact, TECHNICIAN ASSISTANT changed pt gown and put telemetry on the pt. Bed alarm activated due to pt confusion from previous CVA 2015
--- NOTE | 2016-08-21 16:48 | NUR ---
Pt transferred to [facility] room 3013. Pt's Lt upper chest dressing CDI, VSS. Report and pt handoff given to Gadiel MCKEON.
[2016-08-21] MEDS ORDERED: Codeine-APAP 30-300 mg Tablet PO PRN (17:00)
[2016-08-21] MEDS ORDERED: Magnesium Hydroxide 10 mL Oral Concentration PO PRN (17:05)
[2016-08-21] MEDS ORDERED: Polyethylene Glycol (PEG) 17 Gm Powder PO PRN (17:05)
--- NOTE | 2016-08-21 19:43 | OP ---
[address] [address] OPERATIVE REPORT PATIENT: OBED CM : 1940 MR#: [id number] ADMIT: 08/21/2016 JOB ID: [id number] DATE OF SURGERY: 08/21/2016 PREOPERATIVE DIAGNOSIS(ES): Sick sinus syndrome. POSTOPERATIVE DIAGNOSIS(ES): Sick sinus syndrome. PROCEDURES PERFORMED: 1. Dual-chamber pacemaker implantation. 2. Fluoroscopy. SURGEON: Barrie Atwood MD, attending. ELECTRIC METER TECHNICIAN: IMPLANTED DEVICE: 1. [employer] pulse generator, model [id number], serial #[id number]. 2. Right atrial lead, [employer] [id number], 52 cm, serial #[id number]. 3. RV lead, [employer], [id number], 58 cm, serial #[id number]. ANESTHESIA: Bolus dosing of Versed and fentanyl were utilized for an appropriate level of sedation. INDICATION: The patient is a pleasant 76-year-old man with ischemic heart disease, bypass grafting, preserved LV function and sick sinus syndrome. After discussion of risks and benefits of pacemaker implantation, he opted to proceed. PROCEDURAL DESCRIPTION: Following informed consent, the patient was taken to the EP laboratory in a fasting nonsedated state, where he was prepped and draped in usual sterile fashion. The left infraclavicular region was anesthetized with 40 cc of a 50/50 mixture of bupivacaine and lidocaine. Once adequate anesthesia had been achieved, a 3 cm transverse incision was performed 2 cm below the clavicle and dissection was carried down to the pectoralis fascia. A pocket was then fashioned using a combination of electrocautery and blunt dissection. Once adequate hemostasis had been achieved, access to the left axillary vein was gotten with a micropuncture needle twice to deploy two 0.035, 3 mm J guidewires over the first of these. An 8-Vietnamese tear-away sheath was advanced. Once the guidewire was removed, an active fixation lead was advanced to the RV outflow tract, and all the way to the RV apex. Extensive mapping was needed to find a position of adequate sensing and threshold. The lead was fixed in position using associated fixation screw. It was connected to the external analyzer and demonstrated appropriately sensing, R waves, impedance, capture threshold. was checked to 10 V and there was no evidence of diaphragmatic stimulation. Attention was now paid to the right atrial lead. Over the other previously deployed J guidewire, another 8-Vietnamese tear-away sheath was advanced. Once the guidewire was removed, an active fixation lead was then advanced to the right atrial appendage. It was affixed in position using associated active fixation screw. It was connected to external analyzer and demonstrated, and appropriately sensed P waves, impedance, capture threshold. It was checked to 10 V and there was no diaphragmatic stimulation. Once position and redundancy of both leads had been confirmed in multiple fluoroscopic views, the leads were anchored to the prepectoralis fascia using the associated anchoring sleeves and Ethibond sutures. Pocket was then copiously irrigated with antibiotic solution. The leads were connected to a generator. The generator was placed in the pocket and affixed to the floor of the pocket using 1-0 Ti-Cron suture. The incision was then closed with running layers of absorbable suture. The wound was dressed with skin adhesive and a small dressing. At the end of the procedure, the needle, sponge, and instrument counts were reported as correct. COMPLICATIONS: None. ESTIMATED BLOOD LOSS: Negligible. DEVICE MEASURED DATA: 1. Right atrial lead, 2 mV, 410 ohms, 0.5 V at 0.4 msec. 2. RV lead 7.9 mV, 510 ohms, 0.75 V at 0.4 msec. FINAL PROGRAM PARAMETERS: DDDR 60-130 beats per minute with VIP on. IMPRESSION: Successful dual-chamber pacemaker implantation. PLAN: 1. Stat portable chest x-ray. 2. PA and lateral chest x-ray in the morning. 3. Device interrogation in the morning. 4. IV vancomycin through tomorrow. 5. Doxycycline 100 mg p.o. daily x7 days. 6. Wound check in one week. ATTENDING STATEMENT: IBarrie MD, electrophysiology, was present for supervised/performed all aspects of this procedure.
[2016-08-21] MEDS: Insulin LISPRO Medium-Dose Scale SUBQ PRN (20:31)
--- NOTE | 2016-08-21 20:56 | DRSVH ---
PROCEDURE: X-RAY CHEST ONE VIEW, PORTABLE ([id number]) INDICATIONS: 76 year-old male with pacemaker placement. TECHNIQUE: One view of the chest was acquired. COMPARISON: [facility], CR, XR CHEST 1VW (PORTABLE), 08/13/2016, 10:56. [facility], CR, XR CHEST 1VW (PORTABLE), 06/27/2016, 15:08. FINDINGS: Surgical changes and devices: New left chest wall dual chamber pacemaker is present. Median sternotom y wires are again noted. Lungs and pleura: No pleural effusions or pneumothorax. Lungs are clear. Mediastinum: Mediastinal contours appear normal. Heart size is normal. Bones and chest wall: No suspicious bony lesions. Overlying soft tissues appear unremarkable. IMPRESSION: Status post left chest wall pacemaker placement. No pneumothorax. Dictated by: Emmett Reyes M.D. on 08/21/2016 at 20:54 Approved by: Emmett Reyes M.D. on 08/21/2016 at 20:55
[2016-08-22] MEDS ORDERED: Vancomycin Inj 1,000 MG in IV Premix 1 EACH IV ONE (01:55)
[2016-08-22 03:41] VITALS: BP 164/96; PULSE 82; RESP 20; O2SAT 97
[2016-08-22 05:56] VITALS: PULSE 70
--- NOTE | 2016-08-22 06:35 | NUR ---
Mentation / Restraints Patient cannot form new memories after stroke in 2015. After HS med pass the /chemist instrumentation went home. The first time waking up for q4 vitals caused significant distress. The pt was continually requesting his and any attempt to reorient caused increased agitation and suspicion that hospital workers were abducting and harming his . Called to come back to hospital leaving message on answering machine. Paged MD and received 1x order 0.5mg ativan and while waiting for order returned call and I transferred to room. Unfortunately immediately after hanging up the phone with his the pt asked where his was and reorientation was just as unsuccessful the second time around. Administered Ativan and pt slept for approximately 2 hours. During this time was able to get a sitter in the room. Waking up again the patients agitation lead to forcing his way to the hallway in an attempt to rescue his from harm. I left another message on the 's answering machine and called security after the pt forced his way into the hallway again. Security arrived and the patient resisted by swinging cane at security and hospital personnel. Called for Restraint order and PRN Ativan. Sometime around 5am the returned and was able to console the pt.
[2016-08-22] MEDS ORDERED: lamoTRIgine 25 mg Tablet PO SCH (08:30)
[2016-08-22] MEDS: 0.9% Sodium Chloride 1,000 ML IV SCH (08:49)
[2016-08-22] MEDS: Insulin LISPRO Medium-Dose Scale SUBQ PRN (09:16)
[2016-08-22 09:33] VITALS: BP 147/82; PULSE 64; RESP 22; O2SAT 96
--- NOTE | 2016-08-22 09:38 | PCM.DIMED ---
Discharge Instructions Date of Service Aug 22, 2016 Dates of Hospitalization Discharge Diagnosis Discharge Diagnosis Sick Sinus Syndrome Marked Sinus Bradycardia Sleep Apnea Prior Stroke Diet Heart Healthy, Diabetic Activity Other (Keep incision dry one day. Do not extend left elbow high above left shoulder for one month. Do not lift, push or pull more than 10 lbs with the left arm for one month.) Call your provider Fever or Chills, Bleeding, Excessive diarrhea Patient Instructions Follow-up in: 1 week Mid-level Provider (F9): Gideon Tilley PA-C Follow-up with Mid-level in: 6 weeks Gideon Tilley PA-C Aug 22, 2016 09:38
[2016-08-22] MEDS ORDERED: DOXY100C2 PO (09:53)
[2016-08-22 10:06] VITALS: PULSE 62
--- NOTE | 2016-08-22 10:15 | DRSVH ---
PROCEDURE: X-RAY CHEST ONE VIEW, PORTABLE ([id number]) INDICATIONS: For new lead placement TECHNIQUE: One view of the chest was acquired. COMPARISON: [facility], CR, XR CHEST 1VW (PORTABLE), 08/21/2016, 14:04. [facility], [facility], [facility]R CHEST 1VW (PORTABLE), 08/13/2016, 10:56. [facility], CR, XR CHEST 1VW (POR TABLE), 06/27/2016, 15:08. FINDINGS: Surgical changes and devices: Left-sided pacer. Median sternotomy. Lungs and pleura: No pleural effusions or pneumothorax. Lungs are clear. Mediastinum: Mediastinal contours appear normal. Heart size is enlarged. Bones and chest wall: No suspicious bony lesions. Overlying soft tissues appear unremarkable. IMPRESSION: No acute process. Dictated by: Charles Victor M.D. on 08/22/2016 at 10:07 Approved by: Charles Victor M.D. on 08/22/2016 at 10:08
--- NOTE | 2016-08-22 11:09 | NUR ---
Discharge Pt d/c home with at 1110 via wc by an aide. Pt denied pain. VSS. all personal belongings left with pt. Discharge teaching provided with present. Family denied having questions. Form given with f/u appts to cardio for wound and device check.
--- NOTE | 2016-08-22 11:36 | DIS ---
[address] [address] DISCHARGE SUMMARY PATIENT: OBED CM : 1940 MR#: [id number] ADMIT: 08/21/2016 JOB ID: [id number] DIS: 08/22/2016 REASON FOR ADMISSION: Pacemaker implant. CHIEF COMPLAINT: Near syncope. BRIEF HISTORY: The patient is a pleasant 76-year-old man known to have coronary artery disease with a previous bypass surgery, but he has preserved LV function. He is also known to have peripheral vascular disease, previous strokes and TIAs with some cognitive impairment. He has been observed during multiple trips to the hospital that he is quite bradycardic with heart rates in the 30s at times. On one occasion, he fell to the ground feeling lightheaded. He and his were advised of the benefits of a pacemaker in preventing bradycardia symptoms. COURSE IN THE HOSPITAL: The patient was admitted through the [facility] and taken to the [facility]ags [facility], where he received the dual-chamber cardiac pacemaker without incident. He was transferred back to the [facility] for recovery from sedation and then [place] [facility] [place]. Overnight he did well medically but was reported to be quite agitated and even combative and required restraining to prevent harm to himself or the staff. In the morning, he was not agitated and his and [id number] are with him. He denies pain at the pacemaker site. He feels well for discharge home other than having the headache this morning. The device site is closed and dry and there is no hematoma. Device evaluation shows excellent capture and sensing thresholds at 50% atrial pacing. Chest x-ray shows good lead positions and no pneumothorax. DISPOSITION: The patient was discharged home in good condition with a follow up appointment at the [facility] office in one week. He was asked to keep the incision dry one day and then may shower normally. He was also asked not to extend his left elbow high above his left shoulder for one month and not to lift, push or pull more than 10 pounds with the left arm for one month. He will follow his heart healthy and diabetic diets and take medications as prescribed. DISCHARGE MEDICATIONS: 1. Doxycycline 100 mg capsule 1 capsule daily for one week only. 2. Acetaminophen/codeine 300/30 mg tablets 1 tablet q.4 hours p.r.n. pain. 3. Amlodipine 10 mg daily. 4. Aspirin 81 mg daily. 5. Atorvastatin 80 mg daily. 6. Pepcid 20 mg b.i.d. 7. Insulin NPH 100 units subcu daily. 8. Lamotrigine 25 mg daily. 9. Latanoprost eyedrops q.h.s. 10. Losartan 100 mg p.r.n. 11. Magnesium hydroxide 400 mg p.r.n. constipation. 12. Melatonin 3 mg each evening. 13. Multivitamin one daily. 14. Zofran 4 mg q.4 hours p.r.n. nausea. 15. MiraLAX 17 g p.r.n. constipation. 16. Tamsulosin 0.4 mg daily. FINAL DIAGNOSES: 1. Sick sinus syndrome with marked sinus bradycardia and near syncope. 2. Sleep apnea. 3. Prior stroke. 4. Diabetes mellitus. 5. Coronary artery disease.
== END 2016-08-22 11:10 | disposition home or self-care (01) ==
LOC: SOUO 01:20 → MPC 16:05 → SOUO 08-22 11:10
PROVIDERS: ATTEND Internal Medicine Cardiovascular Disease
DX: I49.5 Sick sinus syndrome (principal); Z95.1 Presence of aortocoronary bypass graft; I25.10 Atherosclerotic heart disease of native coronary artery without angina pectoris; I69.319 Unspecified symptoms and signs involving cognitive functions following cerebral infarction; E11.42 Type 2 diabetes mellitus with diabetic polyneuropathy; I73.9 Peripheral vascular disease, unspecified; G47.33 Obstructive sleep apnea (adult) (pediatric); Z79.4 Long term (current) use of insulin; Z79.82 Long term (current) use of aspirin; Z87.891 Personal history of nicotine dependence
CPT/HCPCS: 33208; 36415; 71010; 80048; 85025; 85610; 93005; 99152; 99153; C1769; C1785; C1892; C1898; J1644; J1815; J2060; J2250; J3010; J3370; J7030; J7050

== ENCOUNTER 2016-09-26 12:42 | Emergency (ER) | payer MEDICARE ==
[~2016-09-26] VITALS: Ht 180.3 cm; Wt 104.5 kg
[~2016-09-26 12:42] MED LIST changes: +DOXY100C2 PO; +MELA1TAB11 PO; -MEMA5TAB PO; +TAMS0.4C98 PO
[2016-09-26 13:05] VITALS: BP 154/72; PULSE 70; RESP 18; O2SAT 99
--- NOTE | 2016-09-26 13:15 | ED.REPORT ---
HPI-Psychiatric Illness Date of Service Sep 26, 2016 ED Provider: Doc,Ed MD History of Present Illness: "don't need help". tried to jump out of the car today and tries to pull the steering wheel while driving. was asking for the car to be driven over him. for 57 years. dx of dementia. living at home. 1 story house. no help. [facility] since June. keny at [facility] is primary care Nursing Notes Stated Complaint: MENTAL HEALTH Chief Complaint: Psychiatric Complaint Nursing Notes Reviewed: Yes Allergies: Coded Allergies: No Known Allergies (Unverified , 08/13/16) Scheduled Amlodipine (Amlodipine) 10 Mg Tablet 10 MG PO DAILY Aspirin Chew (Aspirin Chew) 81 Mg Chew 81 MG PO DAILY Atorvastatin (Lipitor) 80 Mg Tablet 80 MG PO DAILY Famotidine (Pepcid) 20 Mg Tablet 20 MG PO BID Lamotrigine (Lamictal) 25 Mg Tablet 25 MG PO DAILY Latanoprost (Latanoprost) 2.5 Ml Drops 1 GTT OP HS Tamsulosin (Flomax) 0.4 Mg Capsule 0.4 MG PO DAILY Scheduled PRN Acetaminophen/Codeine 300-30mg (Tylenol/Codeine #3) 1 Each Tablet 1 TABLET PO Q4H PRN PRN Pain Losartan Potassium (Losartan Potassium) 100 Mg Tablet 100 MG PO PRN hs Magnesium Hydroxide (Milk of Magnesia) 400 Mg/5 Ml Oral.susp 400 MG PO HS PRN PRN For Constipation Multivitamin (Multivitamins) 1 Each Capsule 1 EACH PO MORNING PRN PRN Supplement Ondansetron (Zofran) 4 Mg Tablet 4 MG PO Q4H PRN PRN For Nausea Polyethylene Glycol 3350 (Miralax) 17 Gm Powd.pack 17 GM PO HS PRN PRN For Constipation Miscellaneous Medications Insul NPH Hu Rec/Ins Rg Hu Rec (Novolin 70/30 U100 Insulin Vial) 100 U/1 Ml U 100 U SUBQ Melatonin/Pyridoxine (Melatonin 3 mg Tablet) 1 Each Tablet 1 EACH PO General Time Seen by MD: 13:15 Chief Complaint Aggressive behavior Hx Obtained From: Patient, Spouse Symptom Duration: More than a week... 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 with many tia's after that Past Medical History Cerebral artery occlusion w/ cerebral infarction Obstructive sleep apnea h/o intracerebral hemorrhage h/o colon polyps Chronic kidney disease Arthritis h/o pneumonia PVD h/o toxic metabolic encephalopathy h/o acute respiratory failure w/ hypoxia Diabetic mononeuropathy Stage 4 metastatic prostate cancer Reports: COPD, Cancer, Coronary artery disease, Diabetes mellitus, GERD, Hypertension, Stroke Reports: Atrial fibrillation, Morbid Obesity Past Surgical History Hernia repair Vascular surgery Polypectomy Reports: Tonsillectomy Smoking History Former Smoker Social History Drug Use: Denies drug use Other Social History: Good social support, , Local resident Ambulatory Status Independent Review of Systems Basic Review of Systems Eyes: Vision NL, No discharge Hematologic: No bleeding, No bruising Allergy / Immune: No allergy Physical Exam Initial Vital Signs Vital Signs (First) Date Time Temp Pulse Resp B/P Pulse Ox O2 Delivery O2 Flow Rate FiO2 09/26/16 13:05 36.7 70 18 154/72 99 Room Air Initial VS: Reviewed, Vital signs normal Head / Eyes: Atraumatic, Normocephalic, PERRL ENT: Mucous membranes moist, Conjunctiva normal, No scleral icterus Neck: Supple, Non-tender, Full range of motion Respiratory: Breath sounds normal, Clear to auscultation, No respiratory distress Cardiovascular: Regular rate & rhythm, Heart sounds normal, Intact distal pulses Abdomen / GI: Soft, Non-tender, No guarding, No rebound, No distention Back: No CVA tenderness Lymphatic: No lymphadenopathy Extremities: Vascular intact, Neuro intact, No swelling, No tenderness Skin: Warm, Dry, No cyanosis General/Constitutional: Awake, Alert, No acute distress, Well appearing, Well developed, Well hydrated, Well nourished Alertness: Positive: Confused Neurologic: Oriented X3 Psychiatric: Affect NL, Mood NL, Not suicidal dementia Respiratory / Chest: Atraumatic, Breath sounds NL, Breath sounds = bilat, No respiratory distress Cardiovascular: Heart rate NL, Regular rhythm, Heart sounds NL, No gallop Abdomen: Atraumatic, Soft, Non-tender Interpretation & Diagnostics Lab Results Interpretation Result Diagram: 09/26/16 1353 09/26/16 1353 Test 09/26/16 13:53 09/26/16 15:19 White Blood Count 10.0th/mm3 (3.8-10.1) Red Blood Count 4.87mil/mm3 (4.40-5.80) Hemoglobin 15.1g/dL (13.8-17.2) Hematocrit 42.0% (41.0-50.0) Mean Corpuscular Volume 86.2fL (81-100) Mean Corpuscular Hemoglobin 31.0pg (27.0-35.0) Mean Corpuscular Hemoglobin Concent 36.0% (32.0-37.0) Red Cell Distribution Width 13.1% (12.3-15.4) Platelet Count 194bil/L (150-400) Neutrophils (%) (Auto) 80.0% (40-74) Lymphocytes (%) (Auto) 12.8% (14-46) Monocytes (%) (Auto) 5.6% (4-12) Eosinophils (%) (Auto) 1.0% (0-5) Basophils (%) (Auto) 0.3% (0-3) Sodium Level 139mEq/L (134-144) Potassium Level 4.4mEq/L (3.5-5.2) Chloride Level 99mEq/L (97-108) Carbon Dioxide Level 23mmol/L (18-29) Blood Urea Nitrogen 12mg/dL (8-27) Creatinine 0.78mg/dL (0.76-1.27) Estimat Glomerular Filtration Rate 103mL/min (>59) Glucose Level 306mg/dL (60-99) Calcium Level 10.2mg/dL (8.5-10.1) Total Bilirubin 1.0mg/dL (0.0-1.2) Aspartate Amino Transf (AST/SGOT) 23U/L (0-50) Alanine Aminotransferase (ALT/SGPT) 21U/L (0-44) Alkaline Phosphatase 77U/L (25-160) Total Protein 7.0g/dL (6.4-8.4) Albumin 4.2g/dL (3.4-5.0) Thyroid Stimulating Hormone (TSH) 0.941uIU/mL (0.450-4.500) Hold Green Top Tube Received (Received) Urine Color Yellow (YELLOW) Urine Appearance Clear (CLEAR,HAZY) Urine pH 7.0 (5.0-8.0) Urine Specific [place] 1.020 (1.003-1.035) Urine Protein 300mg/dL (NEG,TRACE) Urine Glucose (UA) 250mg/dL (NEGATIVE) Urine Ketones Negativemg/dL (NEGATIVE) Urine Occult Blood Small (NEGATIVE) Urine Nitrite Negative (NEGATIVE) Urine Bilirubin Negative (NEGATIVE) Urine Urobilinogen Normalmg/dL (NORMAL) Urine Leukocyte Esterase Small (NEGATIVE) Urine RBC 0-2/hpf (0-2) Urine WBC 0-5/hpf (0-5) Urine Epithelial Cells None/hpf (NONE-MOD) Urine Crystals Amorphous urates (NONE Urine Bacteria Few/hpf (NONE-FEW) Urine Hyaline Casts None/lpf (NONE) Urine Granular Casts None seen (NONE SEEN) Urine Waxy Casts None seen (NONE SEEN) Urine Red Blood Cell Casts None seen (NONE SEEN) Urine White Blood Cell Casts None seen (NONE SEEN) Urine Mucus None seen (None Seen) Urine Trichomonas None seen (NONE SEEN) Urine Yeast None (NONE SEEN) Urinalysis Comment None Urine Culture Reflexed Indicated Lab Results Interpretation: urine is clear CT Head Interpretation INDICATIONS: change in behavior TECHNIQUE: Noncontrast 4.5 mm thick angled axial sections acquired from the foramen magnum to the vertex, with coronal reformats. COMPARISON: [facility], CT, CT BRAIN WO CON, 08/13/2016, 12:03. FINDINGS: Image quality: Excellent. CSF spaces: Basal cisterns are patent. No extra-axial fluid collections. The ventricles are symmetric in size and shape. Brain: No intracranial bleeds or masses. There is moderate prominence cerebral volume loss for age, with resultant ventricular and sulcal prominence. There are periventricular and deep white matter chronic small vessel ischemic changes. There is focal loss of lambert-white matter interface along the lateral aspect of the anterior portion of the right temporal lobe. This is unchanged and consistent with an old ischemic infarct. There is intracranial internal carotid artery atherosclerosis. Skull and face: Calvarium and visualized facial bones appear intact, without suspicious lesions. Sinuses: Visualized sinuses and mastoids are clear. IMPRESSION: Acute abnormality is not identified. Moderate atrophy and microvascular ischemic change of aging is present. Dictated by: Gideon Quinonez M.D. on 09/26/2016 at 14:17 Re-Eval/Medical Decision Med Decision/Clinical Course 76 year old male presents with for evualation of behavior concerns while driving today. Patient attempted to grab the steering wheel while the car was in motion and to open the car door while driving. Patient has had significant stroke with multiple TIA's since. is looking for some help. Family does not have funding for adult family home, have minimal family help. Provided resouce book for the elderly. is unhappy that more is not able to be provided. No sign of infection or brain tumor. Discharge & Departure Impression: Primary Impression: Dementia Dementia type: vascular dementia Dementia behavioral disturbance: with behavioral disturbance Qualified Code: F01.51 - Vascular dementia with behavioral disturbance Patient Instructions: Dementia (GEN) Additional Instructions: I am so sad that this is happening. His behavior will continue to get worse. I am suggesting ativan to help take the edge off. In the evening his behavior will be worse. This is part of the process. He should not be riding in a car. When he grabs for the steering wheel, he puts you, him and the community at risk. When he opens the door to jump out, he is not safe to ride in a car. Please see primary care to see if they have any different suggestions as far as medication management. Use ativan, 1 mg 1 to 2 at times of agitation. His calcium is mildly elevated at 10.2. He will need a work up on this which can be done at primary care. Referrals: Afsaneh Hicks DO (PCP) EDSupervising Provider for APC: Tee Yanes MD copies to: Afsaneh Hicks Sue ARNP Sep 26, 2016 13:15
[2016-09-26 14:19] LABS: BASOPHILS % (AUTO) 0.3 % (0-3); MONOCYTES % (AUTO) 5.6 % (4-12); Mean Corpuscular Volume 86.2 fL (81-100); Platelet Count 194 bil/L (150-400)
--- NOTE | 2016-09-26 14:21 | DRSVH ---
PROCEDURE: CT BRAIN WITHOUT CONTRAST ([id number]) INDICATIONS: change in behavior TECHNIQUE: Noncontrast 4.5 mm thick angled axial sections acquired from the foramen magnum to the vertex, with c oronal reformats. COMPARISON: [facility], CT, CT BRAIN WO CON, 08/13/2016, 12:03. FINDINGS: Image quality: Excellent. CSF spaces: Basal cisterns are patent. No extra-axial fluid collections. The ventricles are symmet reginaldo in size and shape. Brain: No intracranial bleeds or masses. There is moderate prominence cerebral volume loss for age, with resultant ventricular and sulcal prominence. There are periventricular and deep white matter c hronic small vessel ischemic changes. There is focal loss of lambert-white matter interface along the la teral aspect of the anterior portion of the right temporal lobe. This is unchanged and consistent wit h an old ischemic infarct. There is intracranial internal carotid artery atherosclerosis. Skull and face: Calvarium and visualized facial bones appear intact, without suspicious lesions. Sinuses: Visualized sinuses and mastoids are clear. IMPRESSION: Acute abnormality is not identified. Moderate atrophy and microvascular ischemic change of aging is present. Dictated by: Gideon Quinonez M.D. on 09/26/2016 at 14:17 Approved by: Gideon Quinonez M.D. on 09/26/2016 at 14:19
[2016-09-26 15:40] LABS: APPEARANCE,URINE CLEAR (CLEAR,HAZY); COLOR,URINE YELLOW (YELLOW); OCCULT BLOOD,URINE SMALL (NEGATIVE)
[2016-09-26 15:48] LABS: UROBILINOGEN,URINE NORMAL (NORMAL)
[2016-09-26 17:58] VITALS: BP 141/88; PULSE 101
== END 2016-09-26 17:30 ==
LOC: SED 12:42
DX: F01.51 Vascular dementia, unspecified severity, with behavioral disturbance (principal); I13.10 Hypertensive heart and chronic kidney disease without heart failure, with stage 1 through stage 4 chronic kidney disease, or unspecified chronic kidney disease; E11.22 Type 2 diabetes mellitus with diabetic chronic kidney disease; N18.9 Chronic kidney disease, unspecified; I25.10 Atherosclerotic heart disease of native coronary artery without angina pectoris; I48.91 Unspecified atrial fibrillation; J44.9 Chronic obstructive pulmonary disease, unspecified; K21.9 Gastro-esophageal reflux disease without esophagitis; Z79.82 Long term (current) use of aspirin; Z86.73 Personal history of transient ischemic attack (TIA), and cerebral infarction without residual deficits; Z87.891 Personal history of nicotine dependence
CPT/HCPCS: 70450; 80053; 81000; 82075; 84443; 85025; 87086; 87088; 96372; 99284; J2060

== ENCOUNTER 2016-10-08 15:49 | Emergency (ER) | payer MEDICARE ==
[2016-10-08 15:48] VITALS: BP 172/77; PULSE 59; RESP 18; O2SAT 97
[~2016-10-08 15:49] MED LIST changes: -DOXY100C2 PO
--- NOTE | 2016-10-08 16:44 | PCM.EDPN ---
ED Note Date of Service Oct 08, 2016 76-year-old man who was discharged from [facility] to [facility] this afternoon. After arrival at [facility] staff apparently went through the chart and decided he was not appropriate to stay. 911 was called to ask to transport him back to the hospital.He was brought to [facility] rather than [facility] Dr. Slade, who had just discharged him from [facility], called to let us know of the mistaken transport. After discussion with [facility] hospitalist, charge nurse, and the patient's , decision was made to have the , Mrs. Funes sweet pickle maker her and transport him back to [facility] for additional disposition. In discussion with Dr Slade, who just saw and evaluated the patient prior to discharge, with no change in clinical status since discharge, we opted to NOT proceed with any work up or evaluation in our ER today. His will be here shortly and will get him back to [facility] where Dr Slade is waiting for him. Kyleigh Wilks MD Oct 08, 2016 16:44
== END 2016-10-08 17:38 | disposition left against medical advice (07) ==
LOC: SED 15:49
DX: R45.851 Suicidal ideations (principal); Z53.29 Procedure and treatment not carried out because of patient's decision for other reasons